=== PATIENT | male | born 1995 | race Caucasian/White ===

== ENCOUNTER → 2021-08-25 08:06 | Outpatient (CLI) | payer OTHER, SELFPAY ==
--- NOTE | ~2021-08-25 | US_ITS ---
US breast BI complete 08/25/2021 08:34 Indication: Breast pain. Procedure: High-resolution complete bilateral breast ultrasound including all 4 quadrants in the suba reolar location Comparison: No prior studies for comparison. Findings: Hypoechoic soft tissues noted in the subareolar location of both breasts, consistent with g ynecomastia. No suspicious masses, calcifications or architectural distortion to suggest malignancy. Impression: 1: No evidence for malignancy. Benign findings. BI-RADS CATEGORY 2 - BENIGN FINDINGS Reviewed, dictated and finalized at location A. [employer] Impression: 1: No evidence for malignancy. Benign findings. BI-RADS CATEGORY 2 - BENIGN FINDINGS
== END ==
PROVIDERS: PCP Internal Medicine; Visit Provider Internal Medicine
DX: N64.4 Mastodynia (principal)
CPT/HCPCS: 76641